=== PATIENT | female | born 1960 | race Caucasian/White ===

== ENCOUNTER 2023-02-21 07:48 | Day surgery (SDC) | payer MEDICARE ==
[~2023-02-21] VITALS: Ht 167.6 cm; Wt 69.8 kg
[2023-02-21] VITALS (13 sets, daily range): BP systolic 108–131; BP diastolic 42–78; PULSE 63–102; RESP 11–16; TEMP 97.9; O2SAT 95–99
[~2023-02-21 07:48] MED LIST: ALEN70TA80 PO; DIAZ2TAB4; DULO60CA65 PO; ESTR1VAG10 VG; FLUT16SP2 BOTHNARES; GABA300C PO; HYDR-3686 PO; LIDOcaine 1% w/EPI 1:100,000 inj. MDV 50 ML VIAL ONE; MELO-102 PO; MULTIVITAMIN; OMEG-5 PO; OMEP40CA21 PO; OXYB10TA30 PO; PHEN-888 PO; cocaine 4% topical solution 4ml bottle ONE; epiNEPHrine 1 mg/ml 30ml MDV ONE; famotidine 20mg tablet PO ONE; mupirocin 2% ointment 22GM ONE; oxymetazoline 15 ML nasal spray NS ONE; ringers solution, lacted 1,000 ML IV SCH
[2023-02-21] MEDS ORDERED: ondansetron/PF 4mg/2ml inj IV PRN (09:30)
[2023-02-21] MEDS ORDERED: morphine 4 MG/ML inj SYRINge IV PRN (09:30)
[2023-02-21] MEDS ORDERED: ringers solution, lacted 1,000 ML IV SCH (09:30)
[2023-02-21] MEDS ORDERED: hydrALAZINE 20mg/ml inj. IV PRN (09:30)
[2023-02-21] MEDS ORDERED: fentaNYL/PF 50MCG/1 ML 2ML syringe IV PRN ×2 (09:30)
[2023-02-21] MEDS ORDERED: labetalol 20mg/4ml (5mg/ml) syringe IV PRN (09:30)
[2023-02-21] MEDS ORDERED: morphine 2 MG/ML inj. syringe IV PRN (09:30)
[2023-02-21] MEDS ORDERED: rocuronium 10mg/ml inj IV ONE (09:55)
[2023-02-21] MEDS ORDERED: propofol 10mg/ml 20ml vial IV ONE (09:55)
[2023-02-21] MEDS ORDERED: desflurane 240ml liquid inh. IH ONE (09:55)
[2023-02-21] MEDS ORDERED: midazolam 1 mg/ML 2ml injection ONE (09:56)
[2023-02-21] MEDS ORDERED: ondansetron/PF 4mg/2ml inj ONE (09:56)
[2023-02-21] MEDS ORDERED: dexamethasone sod phosphate 4mg/ml inj. ONE (09:56)
[2023-02-21] MEDS ORDERED: fentaNYL/PF 50MCG/1 ML 2ML syringe ONE (09:56)
[2023-02-21] MEDS ORDERED: hydrALAZINE 20mg/ml inj. IV ONE (10:50)
--- NOTE | 2023-02-21 11:02 | NUR ---
Received from OR via [facility] TO [facility], accompanied by Anesthesiologist TALA and report given by Anesthesiolgist. PT PRESENTS ON RA WITH VSS. NO C/O PAIN. NO S/S DISTRESS. BILATERAL COTTONOIDS IN NARES, NO S/S BLEEDING. PTS IS AWAKE AND IS ASKING FOR ICE CHIPS. WILL CONTINUE TO ASSESS.
[2023-02-21] MEDS ORDERED: mupirocin 2% nasal ointment 1gm UD NS SCH (11:39)
[2023-02-21] MEDS ORDERED: salt irrigation nasal spray 45 ML SPRAY NS PRN (11:40)
--- NOTE | 2023-02-21 12:52 | NUR ---
PT UP AND DRESSED, ABLE TO VOID, VSS, DENIES ANY PAIN, PIV D/CD- CANNULA INTACT, DISCUSSED ALL D/C PPWK INCLUDING HOME CARE FOR NASAL IRRIGATION AND MEDICATIONS, PT USED OCEAN SPRAY AND OINTMENT BEFORE LEAVING, ALL QUESTIONS ANSWERED, FRESH GAUZE PLACED UNDER NOSE, PT TAKEN WITH SUPPLIES AND BELONGINGS TO VEHICLE, TRANSPORTED INTO VEHICLE WITHOUT INCIDENT, , BANDAR, DROVE HOME.
[2023-02-21] MEDS ORDERED: oxymetazoline 15 ML nasal spray NS SCH (20:00)
== END 2023-02-21 12:52 | disposition home or self-care (01) ==
LOC: PAS 07:48
PROVIDERS: ATTEND Otolaryngology
DX: J34.2 Deviated nasal septum (principal); J34.3 Hypertrophy of nasal turbinates; F41.9 Anxiety disorder, unspecified; K21.9 Gastro-esophageal reflux disease without esophagitis; M19.90 Unspecified osteoarthritis, unspecified site; M85.80 Other specified disorders of bone density and structure, unspecified site; Z88.5 Allergy status to narcotic agent; Z86.19 Personal history of other infectious and parasitic diseases; Z87.891 Personal history of nicotine dependence; F12.90 Cannabis use, unspecified, uncomplicated; Z98.890 Other specified postprocedural states; Z79.899 Other long term (current) drug therapy
CPT/HCPCS: 30140; 30520; 82948; 93005; A6402; J0360; J1100; J2250; J2270; J2405; J3010; J3490; J7030; J7120; Z7506; Z7508; Z7512; A4618; A6449; A7000; J0171; J2704